=== PATIENT | female | born 1980 | race Caucasian/White ===

== ENCOUNTER → 2019-01-14 | Outpatient (CLI) | payer OTHER ==
[2015-04-28 10:50] VITALS: BP 106/70
[~2019-01-14] MED LIST: BUPR75TA5 PO; IOHEXOL 240 MG/ML 50ML VIAL. PO ONE; IOHEXOL 300 MG/ML 100ML VIAL. IV ONE
--- NOTE | 2019-01-14 14:40 | RAD ---
Examination: CT of the abdomen pelvis with oral and IV contrast HISTORY: History of left lower quadrant abdominal pain, diverticulitis COMPARISON: None available TECHNIQUE: Axial CT images of the abdomen pelvis were performed with oral and IV contrast. Coronal and sagittal reformats are performed Exposure: One or more of the following individualized dose reduction techniques were utilized for this examination: 1. Automated exposure control 2. Adjustment of the mA and/or kV according to patient size 3. Use of iterative reconstruction technique FINDINGS: 4.5 mm nodule identified in the right middle lobe of the lung. The bibasilar lungs are clear. No evidence of free air identified in the abdomen. The visualized liver, spleen, adrenals grossly appears unremarkable. Cholecystectomy clips identified. Small hiatal hernia is identified. The visualized pancreas grossly appears unremarkable. Prominent appearing common bile duct likely post cholecystectomy changes. The small bowel is nondilated. Appendix is normal. Feces and gas noted in the colon. Scattered colon diverticulosis identified. The urinary bladder is mildly distended. The bilateral kidneys enhance symmetrically. The caliber of the aorta grossly appears unremarkable. .Peripherally enhancing cystic structure identified in the left adnexa measuring 1.7 cm could be a follicle. Small amount of free fluid identified in the pelvis No evidence of lytic bony destructive lesion. IMPRESSION: 1. Few colon diverticulosis. 2. 1.7 cm probable follicle left ovary. Follow-up ultrasound pelvis. 3. 4.5 mm nodule right middle lobe of the lung. Follow-up CT chest per Fleischner Society guidelines. Electronically signed by: Raymundo Tinsley MD (01/14/2019 2:38 PM) [id number]
== END | disposition home or self-care (01) ==
LOC: CT 12:30
PROVIDERS: ATTEND Family Medicine
DX: K57.30 Diverticulosis of large intestine without perforation or abscess without bleeding (principal); K44.9 Diaphragmatic hernia without obstruction or gangrene; N32.89 Other specified disorders of bladder; R91.1 Solitary pulmonary nodule; I10 Essential (primary) hypertension; E11.9 Type 2 diabetes mellitus without complications; Z90.49 Acquired absence of other specified parts of digestive tract; Z87.19 Personal history of other diseases of the digestive system; Z87.891 Personal history of nicotine dependence
CPT/HCPCS: 74177; Q9966; Q9967

== ENCOUNTER → 2019-01-21 | Outpatient (CLI) | payer OTHER ==
[2015-04-28 10:50] VITALS: BP 106/70
[~2019-01-21] MED LIST changes: -IOHEXOL 240 MG/ML 50ML VIAL. PO ONE; -IOHEXOL 300 MG/ML 100ML VIAL. IV ONE
--- NOTE | 2019-01-21 13:04 | KCIC ---
CT of the chest without contrast Indication: [Follow-up pulmonary nodules] Comparison study: [CT of the abdomen January 14, 2019] Technique: Multidetector CT imaging of the chest was performed without the administration of intravenous contrast. Findings: Thyroid gland is mildly prominent. Heart size is normal. No significant pericardial effusion is identified. No pathologically enlarged mediastinal lymph nodes are identified on limited noncontrast enhanced imaging of the mediastinum. Calcified mediastinal and right hilar lymph nodes are noted. The findings are nonspecific but most commonly reflect the sequela of prior granulomatous disease. There is a calcified granuloma in the right upper lobe. There is no pneumothorax or pleural effusion. No acute-appearing consolidative infiltrate is identified. There is a subpleural 4 mm nodule in the left lower lobe (axial image 103). There is a 3 mm nodule in the more inferior left lower lobe (axial image 129). There is a 4 mm nodule in the more inferior left lower lobe (axial image 136. There is a 2 mm nodule apical right upper lobe (axial image 19). There is a 3 mm noncalcified nodule in the right middle lobe (axial image 107). There is a triangular subpleural nodule the basilar right lower lobe measuring 6 mm in diameter (axial image 144). Limited visualization of the upper abdomen demonstrates no acute abnormality. No acute osseous changes are seen. IMPRESSION: 1.Scattered noncalcified pulmonary nodules, largest in the right lower lobe measuring 6 cm in diameter. Remaining nodules are 4 mm and smaller. If patient is considered low risk, follow-up CT in one year is recommended. If this patient is considered high risk, 6 month follow-up recommended. 2. Changes of prior granulomatous disease including calcified granuloma in the right upper lobe with calcified mediastinal and right hilar lymph nodes noted. Pulmonary Nodule Followup: Fleischner Society recommendations (Radiology 2005; 237; 395-400): Electronically signed by: Esa Reddy MD (01/21/2019 1:01 PM) [id number]
--- NOTE | 2019-01-21 13:11 | KCIC ---
Indication:Abnormal CT showing left ovarian abnormality.. TECHNIQUE: Grayscale, color Doppler and spectral waveform images of the pelvis obtained. COMPARISON: From 01/14/2019. FINDINGS: Uterus is anteverted and measures 9.8 x 4.3 x 6.3 cm (nodule, AP, transverse). Endometrium is thickened measuring 1.6 cm. No free pelvic fluid. The left ovary measures 2.5 x 1 point for by 1.9 cm and shows blood flow. The right ovary measures 3.2 x 2.0 x 2.1 cm and shows blood flow. IMPRESSION: 1. No ovarian cystic lesion seen. 2. Thickened endometrium. Correlate with timings of menstrual cycle. Electronically signed by: Timoteo Mar DO (01/21/2019 1:08 PM) [id number]
== END | disposition home or self-care (01) ==
LOC: KCIC US 12:02
PROVIDERS: ATTEND Physician Assistant Medical
DX: J84.10 Pulmonary fibrosis, unspecified (principal); R91.8 Other nonspecific abnormal finding of lung field; N85.4 Malposition of uterus; R93.89 Abnormal findings on diagnostic imaging of other specified body structures
CPT/HCPCS: 71250; 76856